=== PATIENT | female | born 1975 | race Caucasian/White ===

== ENCOUNTER 2016-10-14 12:20 | Emergency (ER) | payer MEDICAID, OTHER ==
[~2016-10-14] VITALS: Ht 162.6 cm; Wt 68.0 kg
[~2016-10-14 12:20] MED LIST: TRAM50 PO; Z.0.NO CURRENT MEDS
[2016-10-14 12:29] VITALS: BP 165/112; PULSE 112; RESP 16; TEMP 98.5; O2SAT 100
[2016-10-14] MEDS ORDERED: SODIUM CHLOR 0.9% 1000 ML INJ 1,000 ML IV ONE (13:00)
--- NOTE | 2016-10-14 13:21 | PD ---
HPI . Right flank pain Chief Complaint: Musculoskeletal Complaint Time Seen by Provider: 12:58 Travel History International Travel<30 days: No Contact w/Intl Traveler<30days: No Traveled to known affect area: No History of Present Illness HPI Patient presents with right flank pain for the past month. She states that she decided to have it checked today because she was bringing her son here for an unrelated problem. She also reports dysuria for the last month. She denies fever or vomiting. She denies loss of appetite. Her pain is exacerbated by walking and relieved by sleeping. Patient reports a history of a previous 8 mm kidney stone which required operative removal. [facility] Past Medical History Diminished Hearing: No Genitourinary: Yes (L KIDNEY STENT) Kidney Stones: Yes Tetanus Vaccination: > 5 Years Influenza Vaccination: No ?: Not : 2 Para: 2 Past Surgical History Genitourinary Surgery: Yes (STENT PLACED IN URETER AND KIDNEY STONE REMOVED- 2003) Hysterectomy: Yes Other Surgery: Yes (KIDNEY STONE) Social History Alcohol Use: No Tobacco Use: Yes (HALF PPD) Substance Use: No Allergies-Medications (Allergen,Severity, Reaction): Coded Allergies: Flu Vaccine (Verified Allergy, Severe, Nausea/Vomiting, 10/14/16) Tetanus Toxoid (Verified Allergy, Severe, THROAT CLOSES, 10/14/16) Toradol (Verified Allergy, Severe, RASH, 10/14/16) Uncoded Allergies: SURGICAL STEEL (Allergy, Intermediate, SKIN TURNS BLACK, 04/23/08) Reported Meds & Prescriptions Reported Meds & Active Scripts Active No Active Prescriptions or Reported Medications Review of Systems Except as stated in HPI: all other systems reviewed are Neg General / Constitutional: Positive: Other (fatigue), No: Fever, Chills Gastrointestinal: No: Nausea, Vomiting, Diarrhea, Loss of Appetite Genitourinary: Positive: Dysuria, Flank Pain Physical Exam Narrative GENERAL: Awake and alert and in no acute distress. SKIN: Warm and dry. HEAD: Atraumatic. Normocephalic. EYES: Pupils equal and round. ENT: No nasal bleeding or discharge. Mucous membranes pink and moist. NECK: Trachea midline. Neck is supple. CARDIOVASCULAR: Regular rate and rhythm. Heart sounds are normal. RESPIRATORY: No accessory muscle use. Lungs are clear with full air movement throughout. GASTROINTESTINAL: Abdomen soft. Nondistended. Right CVA and right-sided abdominal tenderness. MUSCULOSKELETAL: No obvious deformities. No edema. NEUROLOGICAL: Awake and alert. No obvious cranial nerve deficits. Motor grossly within normal limits. Normal speech. PSYCHIATRIC: Appropriate mood and affect; insight and judgment normal. Data Data Last Documented VS Vital Signs Date Time Temp Pulse Resp B/P Pulse Ox O2 Delivery O2 Flow Rate FiO2 10/14/16 12:29 98.5 112 16 165/112 100 Orders Urinalysis - C+S If Indicated (10/14/16 12:55) Iv Access Insert/Monitor (10/14/16 12:55) Ed Urine Pregnancytest Poc (10/14/16 12:55) Sodium Chlor 0.9% 1000 Ml Inj (Ns 1000 M (10/14/16 13:00) Urine Culture (10/14/16 13:10) Ceftriaxone Inj (Rocephin Inj) (10/14/16 13:45) Ct Abd/Pel W/O Iv Contrast (10/14/16 13:33) Ondansetron Inj (Zofran Inj) (10/14/16 14:00) Labs Laboratory Tests Test 10/14/16 13:10 Urine Collection Type CLEAN CATCH Urine Color YELLOW Urine Turbidity SLIGHT Urine pH 6.5 Urine Specific [place] 1.011 Urine Protein NEG mg/dL Urine Glucose (UA) NEG mg/dL Urine Ketones NEG mg/dL Urine Occult Blood NEG Urine Nitrite POS Urine Bilirubin NEG Urine Leukocyte Esterase TRACE Urine WBC 6-8 /hpf Urine Squamous Epithelial > 8 /hpf Cells Urine Bacteria MANY /hpf Microscopic Urinalysis Comment CULTURE INDICATED Urine Collection Time 13:10 [facility] Medical Decision Making Medical Screen Exam Complete: Yes Emergency Medical Condition: Yes Medical Record Reviewed: Yes (records reviewed. She has not been seen by us for a kidney stone. She reports that this occurred about 2003. Her first visit in our system was in 2006.) Differential Diagnosis Differential diagnosis of flank pain includes but is not limited to kidney stone , pyelonephritis, musculoskeletal pain, PE Narrative Course Patient presents with a one month history of right flank pain and dysuria. She appears to be driving herself and her 9-year-old son. Therefore, I was planning to order Toradol for her pain. However, she reports an adverse drug reaction to Toradol. I will work her up but do not plan on giving her any analgesics here. UA does show UTI. CT CONCLUSION: 1. Punctate nonobstructing right renal calculus. 2. Normal appendix. Diagnosis Primary Impression: Right flank pain Additional Impression: UTI (urinary tract infection) Qualified Code: N30.00 - Acute cystitis without hematuria Patient Instructions: General Instructions, Urinary Tract Infection in Women ( [place]) Med/Other Pt SpecificInfo: Prescription(s) given Scripts Phenazopyridine (Pyridium)200 Mg Xdi540 Mg PO Q8H PRN (DYSURIA) #10 TAB Ref 0 Prov:Neetu Krishna MD 10/14/16 Sulfamethoxazole-Trimethoprim (Bactrim DS)800-160 Mg Tab1 Tab PO BID #20 TAB Ref 0 Prov:Neetu Krishna MD 10/14/16 Neetu Krishna MD Oct 14, 2016 13:21
[2016-10-14 13:22] LABS: BLOOD, URINE NEG (NEG); GLUCOSE,URINE NEG (NEG); KETONE, URINE NEG (NEG); PH, URINE 6.5 (5.0-8.5)
[2016-10-14 13:25] LABS: METHOD OF COLLECTION CLEAN CATCH; NITRITE,URINE POS (NEG); URINE COLOR YELLOW (YELLW/STRAW)
[2016-10-14 13:26] LABS: BACTERIA, URINE MANY /hpf; COMMENT (UR) CULTURE INDICATED; CULTURE IF INDICATED CULTURE INDICATED; SQUAMOUS EPITHELIAL CELL URINE > 8 /hpf (0-5)
[2016-10-14] MEDS ORDERED: cefTRIAXone INJ 1,000 MG in SODIUM CHLORIDE 0.9% INJ 100 ML IV ONE (13:45)
[2016-10-14] MEDS ORDERED: ONDANSETRON HCL 4 MG/2 ML VIAL IV PUSH ONE (14:00)
--- NOTE | 2016-10-14 14:16 | RADHPO ---
EXAM DATE/TIME: 10/14/2016 13:50 [facility] COMPARISON: No previous studies available for comparison. INDICATIONS : Right flank pain. ORAL CONTRAST: No oral contrast ingested. RADIATION DOSE: 10.55 CTDIvol (mGy) MEDICAL HISTORY : Renal calculi. SURGICAL HISTORY : Hysterectomy. Left renal stent. ENCOUNTER: Initial ACUITY: 1 month PAIN SCALE: 8/10 LOCATION: Right flank TECHNIQUE: Volumetric scanning of the abdomen and pelvis was performed. Using automated exposure control and ad justment of the mA and/or kV according to patient size, radiation dose was kept as low as reasonably achievable to obtain optimal diagnostic quality images. FINDINGS: LOWER LUNGS: The visualized lower lungs are clear. LIVER: Homogeneous density without lesion. There is no dilation of the biliary tree. No calcified gallston es. SPLEEN: Normal size without lesion. PANCREAS: Within normal limits. KIDNEYS: Normal in size and shape. There is no mass or hydronephrosis. Punctate right renal calculus measurin g 1-2 mm. ADRENAL GLANDS: Within normal limits. VASCULAR: There is no aortic aneurysm. BOWEL/MESENTERY: The stomach, small bowel, and colon demonstrate no acute abnormality. There is no free intraperitone al air or fluid. ABDOMINAL WALL: Within normal limits. RETROPERITONEUM: There is no lymphadenopathy. BLADDER: No wall thickening or mass. REPRODUCTIVE: Within normal limits. INGUINAL: There is no lymphadenopathy or hernia. MUSCULOSKELETAL: Within normal limits for patient age. CONCLUSION: 1. Punctate nonobstructing right renal calculus. 2. Normal appendix. Andres Evans MD on October 14, 2016 at 14:09 Board Certified Radiologist. This report was verified electronically.
[2016-10-14] MEDS ORDERED: BACT800T5 PO (14:26)
[2016-10-14] MEDS ORDERED: PYRI200T4 PO (14:26)
[2016-10-14 14:40] VITALS: BP 124/77
== END 2016-10-14 14:46 | disposition home or self-care (01) ==
LOC: PHED 12:20
DX: R10.9 Unspecified abdominal pain (principal); N30.00 Acute cystitis without hematuria; N20.0 Calculus of kidney; F17.200 Nicotine dependence, unspecified, uncomplicated; Z87.448 Personal history of other diseases of urinary system; Z87.442 Personal history of urinary calculi
CPT/HCPCS: 74176; 81001; 84703; 87077; 87086; 87186; 96365; 96375; 99284; J0696; J2405; J7030

== ENCOUNTER 2017-03-27 10:12 | Emergency (ER) | payer MEDICAID ==
[~2017-03-27] VITALS: Ht 162.6 cm; Wt 68.0 kg
[~2017-03-27 10:12] MED LIST changes: +BACT800T5 PO; +PYRI200T4 PO; -TRAM50 PO; -Z.0.NO CURRENT MEDS
[2017-03-27 10:15] VITALS: BP 130/64; PULSE 120; RESP 18; TEMP 98.3; O2SAT 99
[2017-03-27] MEDS ORDERED: PRED20 PO (11:08)
[2017-03-27] MEDS ORDERED: BACT800T5 PO (11:08)
--- NOTE | 2017-03-27 11:09 | PD ---
HPI Chief Complaint: Skin Problem Time Seen by Provider: 10:42 Travel History International Travel<30 days: No Contact w/Intl Traveler<30days: No Traveled to known affect area: No History of Present Illness HPI 41-year-old female arrives complaining of swelling in the right hand and swelling in the right leg in the morning. She notes that pain accompanies the swelling and she must lay in bed for some time before she can actually get out of bed and proceed with her day. Various areas of erythema involving the upper and lower extremities has been observed for weeks. Her significant other shares a bedroom with her and has had no such rash. She states the lesions are painful and itchy. Subjective fever is reported. No shortness of breath. PFSH Past Medical History Diminished Hearing: No Genitourinary: Yes (L KIDNEY STENT) Kidney Stones: Yes Influenza Vaccination: No ?: Not : 2 Para: 2 Past Surgical History Genitourinary Surgery: Yes (STENT PLACED IN URETER AND KIDNEY STONE REMOVED- 2003) Hysterectomy: Yes Other Surgery: Yes (KIDNEY STONE) Social History Alcohol Use: No Tobacco Use: Yes (HALF PPD) Substance Use: No Allergies-Medications (Allergen,Severity, Reaction): Coded Allergies: Flu Vaccine (Verified Allergy, Severe, Nausea/Vomiting, 03/27/17) Tetanus Toxoid (Verified Allergy, Severe, THROAT CLOSES, 03/27/17) Toradol (Verified Allergy, Severe, RASH, 03/27/17) Bactrim (Verified Allergy, Mild, Nausea/Vomiting, 03/27/17) Uncoded Allergies: SURGICAL STEEL (Allergy, Intermediate, SKIN TURNS BLACK, 04/23/08) Reported Meds & Prescriptions Reported Meds & Active Scripts Active Keflex (Cephalexin) 500 Mg Cap 500 Mg PO Q8H Bactrim DS (Sulfamethoxazole-Trimethoprim) 800-160 Mg Tab 1 Tab PO BID Prednisone 20 Mg Tab 40 Mg PO DAILY 4 Days Take 40 mg (2 tablets) daily for 5 days Review of Systems General / Constitutional: No: Fever Respiratory: No: Cough Physical Exam Narrative GENERAL: 41-year-old female well-nourished well-developed SKIN: There are excoriated lesions up to 1 cm maximum diameter involving the upper and lower extremities with occasional vomiting and the trunk. The face is spared. The palms and soles are spared. Areas of erythema are minimally tender. There is no fluctuance or purulent discharge. HEAD: Normocephalic. NECK: Supple, trachea midline. No JVD or lymphadenopathy. CARDIOVASCULAR: Regular rate and rhythm without murmurs, gallops, or rubs. RESPIRATORY: Breath sounds equal bilaterally. No accessory muscle use. MUSCULOSKELETAL: Patient is ambulatory. There is no evidence of swelling or edema or asymmetry of any extremity. Data Data Last Documented VS Vital Signs Date Time Temp Pulse Resp B/P Pulse Ox O2 Delivery O2 Flow Rate FiO2 03/27/17 10:15 98.3 120 18 130/64 99 Room Air Vital signs reviewed Orders Sulfamet-Trimeth Ds 800-160 Mg (Bactrim (03/27/17 11:15) Prednisone (Deltasone) (03/27/17 11:15) MDM Medical Decision Making Medical Screen Exam Complete: Yes Emergency Medical Condition: Yes Differential Diagnosis Cellulitis, dermatitis, anaphylactic shock, abscess, edema, DVT Narrative Course Presentation is in keeping with a dermatitis with her without cellulitis. Scripts as below. Return precautions discussed. Diagnosis Primary Impression: Rash and nonspecific skin eruption Additional Impression: Swelling Referrals: Primary Care Physician 2 days Additional Instructions: You have a choice when it comes to health care, and we are glad that you chose [facility]. Hopefully, we have met your expectations on today's visit. You are welcome to return to [facility] at any time, as we are committed to meeting the health care needs of our community. Med/Other Pt SpecificInfo: Prescription(s) given Scripts Cephalexin (Keflex)500 Mg Exp277 Mg PO Q8H #30 CAP Ref 0 Prov:Sam Feng MD 03/27/17 Sulfamethoxazole-Trimethoprim (Bactrim DS)800-160 Mg Tab1 Tab PO BID #14 TAB Ref 0 Prov:Sam Feng MD 03/27/17 Prednisone 20 Mg Tab40 Mg PO DAILY 4 Days Ref 0 Take 40 mg (2 tablets) daily for 5 days Prov:Sam Feng MD 03/27/17 Disposition: 01 DISCHARGE HOME Condition: Stable Sam Feng MD Mar 27, 2017 11:09
[2017-03-27] MEDS ORDERED: SULFAMETHOXAZOLE-TRIMETHOPRIM DS 800-160 MG TAB PO ONE (11:15)
[2017-03-27] MEDS ORDERED: predniSONE 20 MG TAB PO ONE (11:15)
[2017-03-27] MEDS ORDERED: CEPH-460 PO (11:21)
== END 2017-03-27 11:35 | disposition home or self-care (01) ==
LOC: PHED 10:12
DX: R21 Rash and other nonspecific skin eruption (principal); M79.89 Other specified soft tissue disorders
CPT/HCPCS: 99284; J7512